=== PATIENT | female | born 1985 | race Caucasian/White ===

== ENCOUNTER 2018-02-26 14:43 | Inpatient (IN) ==
[2018-02-26] MEDS ORDERED: LACTATED RINGERS 500 ML IV ONE (17:25)
[2018-02-26] MEDS ORDERED: LACTATED RINGERS 1,000 ML IV SCH ×2 (17:30→18:30)
[2018-02-26] MEDS: ONDANSETRON 4 MG/2 ML VIAL IV PRN ×2 (17:41→23:52)
[2018-02-26] MEDS: FAMOTIDINE 20 MG/2 ML VIAL IV SCH (17:44)
[2018-02-26] MEDS: methylPREDNISolone SOD SUC 40 MG/1 ML VIAL IV SCH (17:46)
[2018-02-26 19:11] LABS: Basophils % 0.3 % (0.0-0.8); Eosinophils # 0.1 10*3/uL (0.0-0.87); Eosinophils % 0.9 % (0.00-10.9); Hematocrit 35.3 VOL% (35.7-47.0); Hemoglobin 12.3 GM/DL (12.0-16.0); Immature Granulocytes % 0.4 %; Immature Granulocytes Absolute 0.04 #; Lymphocytes # 1.8 10*3/uL (1.4-4.0); Lymphocytes % 17.9 % (21.3-54.2); Mean Corpuscular HGB Conc 34.8 GM/DL (32-36); Mean Corpuscular Hemoglobin 28 PG (27-34); Mean Corpuscular Volume 79.9 FL (87-102); Mean Platelet Volume 9.5 FL (9.6-12.0); Monocytes # 0.7 10*3/uL (0.11-0.8); Monocytes % 6.6 % (1.7-12.7); Neutrophils # 7.2 10*3/uL (1.4-7.4); Neutrophils % 73.9 % (38.7-73.9); Platelet Count 304 T/CUMM (130-400); Red Blood Count 4.42 MC/CUMM (3.8-5.5); Red Cell Distribution Width 13.4 % (9.3-17.3); White Blood Count 9.8 T/CUMM (4-12)
[2018-02-26 19:19] LABS: Albumin 3.3 G/DL (3.4-5.0); Bilirubin,Total 0.7 MG/DL (0.2-1.0); Calcium 8.6 MG/DL (8.5-10.1); Osmolality,Calculated 274.5 MOS/KG (273-304); Potassium 3.8 MMOL/L (3.5-5.1); Total Protein 7.4 G/DL (6.4-8.3)
[2018-02-26] MEDS: MULTIVITAMIN IV SCH (23:44)
[2018-02-26] MEDS: LACTATED RINGERS IV SCH (23:44)
[2018-02-27] MEDS: methylPREDNISolone SOD SUC 40 MG/1 ML VIAL IV SCH ×3 (01:57→17:37)
[2018-02-27] MEDS: FAMOTIDINE 20 MG/2 ML VIAL IV SCH (06:01)
[2018-02-27] MEDS: LACTATED RINGERS IV SCH ×3 (06:05→20:35)
[2018-02-27] MEDS: MULTIVITAMIN IV SCH ×3 (06:05→20:35)
[2018-02-27] MEDS: ONDANSETRON 4 MG/2 ML VIAL IV PRN ×2 (09:47→15:07)
[2018-02-27] MEDS ORDERED: LACTATED RINGERS 1,000 ML IV SCH (17:10)
[2018-02-27] MEDS ORDERED: ACETAMINOPHEN 325 MG TABLET PO ONE (17:21)
[2018-02-27] MEDS ORDERED: MULTIVITAMIN INJ 10 ML in LACTATED RINGERS 1,000 ML IV SCH (20:00)
[2018-02-27] MEDS: FAMOTIDINE 20 MG TABLET PO SCH (20:35)
[2018-02-27] MEDS: ONDANSETRON 4 MG TABLET PO PRN (20:38)
[2018-02-28] MEDS: methylPREDNISolone SOD SUC 40 MG/1 ML VIAL IV SCH (01:42)
[2018-02-28] MEDS: LACTATED RINGERS IV SCH (06:40)
[2018-02-28] MEDS: MULTIVITAMIN IV SCH (06:40)
[2018-02-28] MEDS: FAMOTIDINE 20 MG TABLET PO SCH ×3 (07:39→20:03)
[2018-02-28] MEDS: ONDANSETRON 4 MG TABLET PO PRN ×3 (07:39→21:44)
[2018-02-28] MEDS ORDERED: predniSONE 20 MG TABLET PO ONE (08:27)
[2018-02-28] MEDS: ONDANSETRON 4 MG/2 ML VIAL IV PRN (13:34)
[2018-02-28] MEDS ORDERED: ALUMINUM/MAGNES/SIMETH MAX STR 30 ML UDCUP PO PRN (20:52)
[2018-03-01] MEDS: ONDANSETRON 4 MG TABLET PO PRN ×2 (05:01→09:49)
[2018-03-01 08:10] VITALS: BP 96/48
[2018-03-01] MEDS: FAMOTIDINE 20 MG TABLET PO SCH (09:07)
== END 2018-03-01 11:35 | disposition home or self-care (01) | DRG 781 ==
LOC: N.OB 16:32
PROVIDERS: ADMIT Obstetrics & Gynecology; ATTEND Obstetrics & Gynecology